=== PATIENT | male | born 1990 | race Caucasian/White ===

== ENCOUNTER 2021-08-14 19:00 | Observation (INO) ==
[2021-08-14 23:56] LABS: Basophils % 0.3 %; Eosinophils # 0.2 K/mcL (0.0-0.6); Eosinophils % 1.5 %; Hematocrit 44.6 % (37.5-50.1); Hemoglobin 15.1 g/dL (12.9-16.9); Immature Granulocytes % 0.3 % (0-4); Lymphocytes # 2.5 K/mcL (0.6-4.6); Lymphocytes % 21.4 %; Mean Corpuscular HGB Conc 33.9 g/dL (31.6-35.5); Mean Corpuscular Hemoglobin 31.3 pg (28.0-33.3); Mean Corpuscular Volume 92.5 fL (83.0-100.0); Mean Platelet Volume 10.1 fL (9.4-12.4); Monocytes # 0.8 K/mcL (0.0-1.3); Monocytes % 7.3 %; Neutrophils # 7.9 K/mcL (1.6-8.9); Platelet Count 269 K/mcL (140-400); Red Blood Count 4.82 M/mcL (4.19-5.50); Red Cell Distribution Width 12.2 % (11.5-14.5); Segmented Neutrophils % 69.2 %; White Blood Count 11.5 K/mcL (4.3-11.1)
[2021-08-15 00:14] LABS: BUN/Creatinine Ratio 20 (6-26); Blood Urea Nitrogen 20 mg/dL (6-20); Calcium 9.2 mg/dL (8.6-10.3); Carbon Dioxide 29 mEq/L (23-29); Chloride 101 mEq/L (98-107); Glucose 114 mg/dL (70-105); Osmolality,Calculated 285 (280-300); Potassium 3.9 mEq/L (3.5-5.1); Sodium 136 mEq/L (136-145); eGFR For African Americans > 60 (> 60); eGFR For Non-African Americans > 60 (> 60)
[2021-08-15] MEDS ORDERED: *HR* Midazolam HCl 2 MG/2 ML VIAL ONE (09:17)
[2021-08-15] MEDS ORDERED: *HR* Propofol 200 MG/20 ML VIAL IVP ONE (09:17)
[2021-08-15] MEDS ORDERED: *HR* FentaNYL (PF) 100 MCG/2 ML VIAL ONE ×2 (09:17→12:13)
[2021-08-15] MEDS ORDERED: Lidocaine -MPF 2% 2 ML VIAL ONE (09:18)
[2021-08-15] MEDS ORDERED: *HR* Succinylcholine 200 MG/10 ML VIAL IVP ONE (09:18)
[2021-08-15] MEDS ORDERED: *HR* Rocuronium Bromide 50 MG/5 ML VIAL ONE (09:18)
[2021-08-15] MEDS ORDERED: Lidocaine HCL 4 ML Topical Solution (Laryng-O-Jet Kit Sterile Pak) TP ONE (09:18)
[2021-08-15] MEDS ORDERED: Ondansetron 4 MG/2 ML VIAL ONE (09:18)
[2021-08-15] MEDS ORDERED: Bupivacaine/EPI 1:200k 0.25% 50 ML VIAL ONE (09:53)
[2021-08-15] MEDS ORDERED: Vancomycin 1,000 MG VIAL ONE (09:54)
[2021-08-15] MEDS ORDERED: CeFAZolin Syr 2,000MG/20 ML 2,000 MG/20 ML SYRINGE IVPB ONE (10:01)
[2021-08-15 10:05] LABS: Prothrombin Time 11.6 Seconds (9.4-12.1)
[2021-08-15 10:07] LABS: Activated Partial Thrombo Time 32.3 Seconds (26.0-36.0)
[2021-08-15] MEDS ORDERED: Ringers Solution, Lactated 1,000 ML IVC SCH (10:15)
[2021-08-15] MEDS ORDERED: *HR* HYDROMORPHONE 2 MG/ML VIAL ONE (10:24)
[2021-08-15] MEDS ORDERED: Ketamine HCL *QUVA* 50mg (1mL) SYRINGE ONE (12:14)
[2021-08-15] MEDS ORDERED: Sugammadex Sodium 200 MG/2 ML VIAL IV ONE (12:59)
[2021-08-15] MEDS ORDERED: *HR* HYDROcodone/Acet 5/325 mg TABLET PO PRN (14:19)
[2021-08-15] MEDS ORDERED: Ondansetron 4 MG/2 ML VIAL IVP PRN (14:19)
[2021-08-15] MEDS ORDERED: *HR* OxyCODONE Immed Rel 5 MG TABLET PO PRN (14:19)
[2021-08-15] MEDS ORDERED: Naloxone 0.4 MG/ML INJ IVP PRN (14:19)
[2021-08-15] MEDS: CeFAZolin 2 GM/120 ML BAG IVPB SCH (17:01)
[2021-08-15] MEDS: Acetaminophen 325 MG TABLET PO SCH ×2 (17:01→23:12)
[2021-08-16] MEDS: CeFAZolin 2 GM/120 ML BAG IVPB SCH (02:25)
[2021-08-16] MEDS: Acetaminophen 325 MG TABLET PO SCH (05:39)
[2021-08-16 06:59] VITALS: BP 137/79; PULSE 75; TEMP 98.2; O2SAT 98
== END 2021-08-16 13:20 | disposition home or self-care (01) ==
LOC: 4WAOSI 19:00 → EMEROOARM 19:00 → 4WAOSI 08-15 08:41
PROVIDERS: ADMIT Internal Medicine; ATTEND Student in an Organized Health Care Education/Training Program